=== PATIENT | female | born 1985 ===

== ENCOUNTER 2018-01-20 08:54 | Day surgery (SDC) | payer OTHER ==
[2018-01-19 13:32] VITALS: BMI 25.0
[2018-01-20] MEDS ORDERED: Oxytocin 10 Units/ml Inj ONE (10:01)
[2018-01-20] MEDS ORDERED: Propofol 10 mg/ml Inj (20 ML) ONE (10:37)
[2018-01-20] MEDS ORDERED: Midazolam 2 MG/2 ML VIAL ONE (10:37)
[2018-01-20] MEDS ORDERED: Lactated Ringer's 1,000 ML IV ONE (11:24)
[2018-01-20] MEDS ORDERED: Oxycodone/Acetaminophen 5/325 mg Tab PO PRN (11:26)
[2018-01-20] MEDS ORDERED: HYDROmorphone 0.5 mg/0.5 ml ISec IVP PRN (11:27)
[2018-01-20 13:02] VITALS: RESP 16
[2018-01-20 14:28] VITALS: BP 101/63; PULSE 16; TEMP 73; O2SAT 99
--- NOTE | 2018-01-20 22:00 | OP ---
PROCEDURE DATE: 01/20/2018 PREOPERATIVE DIAGNOSIS: Missed . POSTOPERATIVE DIAGNOSIS: Missed . PROCEDURE PERFORMED: Suction, dilatation and curettage. ANESTHESIA: LMA. ANESTHESIOLOGIST: Dr. Molina. ESTIMATED BLOOD LOSS: 500 mL. COMPLICATIONS: None. SPECIMEN: Products of conception for chromosome analysis as well as for histology. PROCEDURE IN DETAIL: After informed consent was obtained, the patient was taken to the operating room and placed in dorsal supine position. General anesthesia was induced and the patient had an LMA was placed without any difficulty. She was thereafter placed in dorsal lithotomy position. She was then prepped and draped in the usual sterile manner. The urinary bladder was straight catheterized for approximately 20 mL of clear urine and a sterile speculum was then placed in the vagina and the anterior lip of the cervix was grasped with a single-tooth tenaculum. The cervix was thereafter gradually dilated until a size 8 mm suction tip could be introduced into the patient/s uterine cavity. The suction tip was introduced into the uterine cavity and it was hooked up to the suction machine. The suction machine was turned up and the products of conception was suctioned out. Three passes were done and clear blood was now noted in the suction tubing. Sharp curettage was performed until a gritty sensation was felt, and one more pass of the suction tubing was done and no products of conception with very minimal blood was noted. The tenaculum was thereafter removed from the anterior lip of the cervix. The tenaculum site was noted to be hemostatic. The speculum was removed. The patient was thereafter cleaned, taken out of the lithotomy position and extubated and taken to the recovery room in stable condition. The specimen was sent to Pathology. Lamonte Badillo MD
== END 2018-01-20 14:24 | disposition home or self-care (01) ==
LOC: C.SDS 08:54
PROVIDERS: ATTEND Student in an Organized Health Care Education/Training Program
DX: O02.1 Missed abortion (principal)
CPT/HCPCS: 59820; 88233; 88262; 88305; J1100; J1170; J1885; J2001; J2250; J2405; J2590; J2704; J3010; J7120